=== PATIENT | male | born 1955 | race Caucasian/White ===

== ENCOUNTER 2017-01-16 09:42 | Day surgery (SDC) | payer BC ==
--- NOTE | ~2017-01-16 | EGD ---
EGD REPORT [facility] [address] [address] NAME: KD ROBISON JR : 55 STATUS : REG [facility]#: [id number] AGE: 62 ADM/REG DATE : 01/16/17 MR#: [id number] REPORT SERV DATE: 01/16/17 DICTATED BY: LAMAR TAYLOR III DATE: 01/16/17 REPORT STATUS : Draft [facility] DATE: 01/16/17 Endoscopy Center Patient Name: Kd Robison Jr Date of : 1955 Attending MD: LAMAR TAYLOR III, MD Procedure Date No Time: 01/16/2017 Procedure: Colonoscopy Indications: High risk colon cancer surveillance: Personal history of colonic polyps Referring MD: NATI CHIN II Medicines: Propofol per Anesthesia Complications: No immediate complications. Procedure: Pre-Anesthesia Assessment: - ASA Grade Assessment: II - A patient with mild systemic disease. After I obtained informed consent, the scope was passed under direct vision. Throughout the procedure, the patient's blood pressure, pulse, and oxygen saturations were monitored continuously. The PCF [id number] was introduced through the anus and advanced to the cecum, identified by appendiceal orifice and ileocecal valve. The colonoscopy was performed with ease. The patient tolerated the procedure well. The quality of the bowel preparation was good. Findings: The colon (entire examined portion) appeared normal. Impression: - The entire examined colon is normal. Recommendation: - Patient has a contact number available for emergencies. The signs and symptoms of potential delayed complications were discussed with the patient. Return to normal activities tomorrow. Written discharge instructions were provided to the patient. - Discharge patient to home. - Return to previous diet. - Continue present medications. - Repeat colonoscopy in 5 years for surveillance. Procedure Code(s): --- Professional --- 66087, Colonoscopy, flexible, proximal to splenic flexure; diagnostic, with or without collection of specimen(s) by brushing or washing, with or without colon decompression (separate procedure) EGD REPORT [facility] [address] [place]. [address] NAME: KD ROBISON JR : 55 STATUS : REG [facility]#: [id number] AGE: 62 ADM/REG DATE : 01/16/17 MR#: [id number] REPORT SERV DATE: 01/16/17 DICTATED BY: LAMAR TAYLOR III DATE: 01/16/17 REPORT STATUS : Draft TRANSCRIBED BY: [employer] DATE: 01/16/17 Diagnosis Code(s): --- Professional --- Z86.010, Personal history of colonic polyps CPT copyright 2013 [employer]. All rights reserved. The codes documented in this report are preliminary and upon medical records coder review may be revised to meet current compliance requirements. LAMAR TAYLOR III, MD 01/16/2017 11:28 AM This report has been signed electronically. Number of Addenda: 0 Note Initiated On: 01/16/2017 11:00 AM Scope Withdrawal Time 0 hours 9 minutes 7 seconds [address] [facility] [place] [address]
--- NOTE | ~2017-01-16 | EGD ---
EGD REPORT [facility] [address] [address] NAME: KD ROBISON JR : 55 STATUS : REG [facility]#: [id number] AGE: 62 ADM/REG DATE : 01/16/17 MR#: [id number] REPORT SERV DATE: 01/16/17 DICTATED BY: LAMAR TAYLOR III DATE: 01/16/17 REPORT STATUS : Draft [facility]: [facility] DATE: 01/16/17 Endoscopy Center Patient Name: Kd Robison Jr Date of : 1955 Attending MD: LAMAR TAYLOR III, MD Procedure Date No Time: 01/16/2017 Procedure: Upper GI endoscopy Indications: Dyspepsia, Heartburn Referring MD: NATI CHIN II Medicines: Propofol per Anesthesia Complications: No immediate complications. Procedure: Pre-Anesthesia Assessment: - ASA Grade Assessment: II - A patient with mild systemic disease. After obtaining informed consent, the endoscope was passed under direct vision. Throughout the procedure, the patient's blood pressure, pulse, and oxygen saturations were monitored continuously. The GIF H190 [id number] was introduced through the mouth, and advanced to the third part of duodenum. The upper GI endoscopy was accomplished with ease. The patient tolerated the procedure well. Findings: LA Grade A (one or more mucosal breaks less than 5 mm, not extending between tops of 2 mucosal folds) esophagitis with no bleeding was found in the lower third of the esophagus. Biopsies were taken with a cold forceps for histology. Diffuse mildly erythematous mucosa without bleeding was found in the gastric antrum. Biopsies were taken with a cold forceps for histology. The examined duodenum was normal. A small hiatus hernia was present. A non-obstructing Schatzki ring (acquired) was found at the gastroesophageal junction. Impression: - LA Grade A reflux esophagitis. Biopsied. - Erythematous mucosa in the antrum. Biopsied. - Normal examined duodenum. - Hiatus hernia. Recommendation: - Patient has a contact number available for emergencies. The signs and symptoms of potential delayed complications were discussed with the patient. Return to normal activities tomorrow. Written discharge instructions were provided to the patient. EGD REPORT [address] [address] NAME: KD ROBISON JR : 55 STATUS : REG [facility] PAT#: [id number] AGE: 62 ADM/REG DATE : 01/16/17 MR#: [id number] REPORT SERV DATE: 01/16/17 DICTATED BY: LAMAR TAYLOR III DATE: 01/16/17 REPORT STATUS : Draft TRANSCRIBED BY: [employer] DATE: 01/16/17 - Discharge patient to home. - Return to previous diet. - Follow an antireflux regimen. - Continue present medications. - Await pathology results. Procedure Code(s): --- Professional --- 59459, Esophagogastroduodenoscopy, flexible, transoral; with biopsy, single or multiple Diagnosis Code(s): --- Professional --- K21.0, Gastro-esophageal reflux disease with esophagitis K31.9, Disease of stomach and duodenum, unspecified K44.9, Diaphragmatic hernia without obstruction or gangrene K30, Functional dyspepsia R12, Heartburn CPT copyright 2013 [employer]. All rights reserved. The codes documented in this report are preliminary and upon tax staff accountant review may be revised to meet current compliance requirements. LAMAR TAYLOR III, MD 01/16/2017 11:14 AM This report has been signed electronically. Number of Addenda: 0 Note Initiated On: 01/16/2017 11:02 AM Scope Withdrawal Time 0 hours 0 minutes 0 seconds [address] [place] [address]
[~2017-01-16 09:42] MED LIST: CADUET10 MG/20 M PO; LOTREL1 CA4 PO; PROTONIX PO; ZANTAC150 MG PO
== END 2017-01-16 23:59 | disposition home or self-care (01) ==
LOC: DMU 09:42
PROVIDERS: Internal Medicine Gastroenterology
PROC: 0DB68ZX Excision of Stomach, Via Natural or Artificial Opening Endoscopic, Diagnostic (ICD-10-PCS; 2017-01-16)
PROC: 0DJD8ZZ Inspection of Lower Intestinal Tract, Via Natural or Artificial Opening Endoscopic (ICD-10-PCS; principal; 2017-01-16 11:00)
PROC: 0DB38ZX Excision of Lower Esophagus, Via Natural or Artificial Opening Endoscopic, Diagnostic (ICD-10-PCS; 2017-01-16 11:00)
DX: Z12.11 Encounter for screening for malignant neoplasm of colon (principal); K21.0 Gastro-esophageal reflux disease with esophagitis; K31.9 Disease of stomach and duodenum, unspecified; K44.9 Diaphragmatic hernia without obstruction or gangrene; K30 Functional dyspepsia; R12 Heartburn; I10 Essential (primary) hypertension; M25.569 Pain in unspecified knee; G47.33 Obstructive sleep apnea (adult) (pediatric); Z88.5 Allergy status to narcotic agent; Z88.8 Allergy status to other drugs, medicaments and biological substances; Z86.010 Personal history of colon polyps; Z98.890 Other specified postprocedural states
CPT/HCPCS: 88305; 88342